=== PATIENT | male | born 1940 | race African-American/Black ===

== ENCOUNTER 2019-11-13 18:54 | Observation (INO) ==
[2019-11-13] MEDS ORDERED: ONDANSETRON 4 MG/2 ML VIAL IV STA (19:41)
[2019-11-13] MEDS ORDERED: PANTOPRAZOLE 40 MG TABLET PO STA (19:41)
[2019-11-13] MEDS ORDERED: SODIUM CHLORIDE 0.9% 500 ML IV STA (19:41)
[2019-11-13 20:02] LABS: Basophils % 0.2 % (0.0-0.8); Eosinophils # 0.1 10*3/uL (0.0-0.87); Eosinophils % 1.4 % (0.00-10.9); Hemoglobin 7.4 GM/DL (14.0-18.0); Immature Granulocytes % 1.5 %; Immature Granulocytes Absolute 0.14 #; Lymphocytes # 2.1 10*3/uL (1.4-4.0); Lymphocytes % 22.4 % (21.2-54.2); Mean Corpuscular HGB Conc 30.8 GM/DL (32-36); Mean Corpuscular Volume 96.4 FL (87-102); Mean Platelet Volume 12.2 FL (9.6-12.0); Monocytes % 9.6 % (1.7-12.7); NRBC # 0.02 10*3/uL; Neutrophils % 64.9 % (38.7-73.9); Platelet Count 169 T/CUMM (130-400); Red Blood Count 2.49 MC/CUMM (3.8-5.5); Red Cell Distribution Width 14.6 % (9.3-17.3); White Blood Count 9.4 T/CUMM (4-12)
[2019-11-13 20:11] LABS: Alanine Aminotransferase 58 U/L (16-61); Albumin 2.8 G/DL (3.4-5.0); Alkaline Phosphatase 78 U/L (45-117); Aspartate Amino Transferase 47 U/L (0-37); Bilirubin,Total < 0.39 MG/DL (0.2-1.0); Blood Urea Nitrogen 99 MG/DL (7-18); Calcium 8.5 MG/DL (8.5-10.1); Estimated Glom Filtration Rate 15 ML/MIN; Ferritin 503.6 ng/ml (26-388); Glucose 169 MG/DL (74-106); Osmolality,Calculated 313.4 MOS/KG (273-304); Total Protein 6.7 G/DL (6.4-8.3)
[2019-11-13 20:12] LABS: Troponin I 0.082 NG/ML (0.00-0.045)
[2019-11-13 20:22] LABS: INR 1.7; PT Patient Result 18.1 SECS (9.8-11.9); Partial Thromboplastin Time 32.3 SECS (23.9-33.8)
[2019-11-13] MEDS ORDERED: ONDANSETRON 4 MG/2 ML VIAL IV PRN (21:44)
[2019-11-13] MEDS ORDERED: ACETAMINOPHEN 325 MG TABLET PO PRN (21:44)
[2019-11-13] MEDS ORDERED: GLUCAGON 1 MG VIAL IM PRN (21:44)
[2019-11-13] MEDS ORDERED: DEXTROSE 50% 25 GM/50 ML VIAL IV PRN (21:44)
[2019-11-14 03:40] LABS: Hematocrit 20.1 VOL% (42.0-52.0)
[2019-11-14 03:43] LABS: Hemoglobin 6.1 GM/DL (14.0-18.0)
[2019-11-14] MEDS ORDERED: SODIUM CHLORIDE 0.9% 1,000 ML IV PRN ×3 (03:50→07:07)
[2019-11-14 03:51] LABS: PT Patient Result 20.9 SECS (9.8-11.9)
[2019-11-14 03:55] LABS: Partial Thromboplastin Time 34.4 SECS (23.9-33.8)
[2019-11-14 04:15] LABS: Alanine Aminotransferase 44 U/L (16-61); Albumin 2.4 G/DL (3.4-5.0); Alkaline Phosphatase 61 U/L (45-117); Aspartate Amino Transferase 33 U/L (0-37); Bilirubin,Total < 0.39 MG/DL (0.2-1.0); Blood Urea Nitrogen 102 MG/DL (7-18); Calcium 8.1 MG/DL (8.5-10.1); Estimated Glom Filtration Rate 15 ML/MIN; Glucose 155 MG/DL (74-106); Osmolality,Calculated 322.7 MOS/KG (273-304); Total Protein 5.6 G/DL (6.4-8.3)
[2019-11-14] MEDS ORDERED: FUROSEMIDE 20 MG/2 ML VIAL IV PRN ×2 (07:07→17:39)
[2019-11-14] MEDS ORDERED: PHYTONADIONE INJ 2.5 MG in SODIUM CHLORIDE 0.9% 25 ML IV ONE (07:30)
[2019-11-14] MEDS: INSULIN REGULAR 100 UNIT/ML SUBCUT SCH ×4 (08:48→22:02)
[2019-11-14] MEDS: POLYETHYLENE GLYCOL POWDER 17 GM PACK PO SCH ×3 (09:04→22:03)
[2019-11-14] MEDS: PANTOPRAZOLE 40 MG TABLET PO SCH (09:04)
[2019-11-14 14:03] LABS: Hematocrit 20.4 VOL% (42.0-52.0)
[2019-11-14 14:13] LABS: Hemoglobin 6.1 GM/DL (14.0-18.0)
[2019-11-14 22:22] LABS: Hemoglobin 8.1 GM/DL (14.0-18.0)
[2019-11-15 05:51] LABS: Basophils % 0.2 % (0.0-0.8); Eosinophils # 0.3 10*3/uL (0.0-0.87); Eosinophils % 1.9 % (0.00-10.9); Hematocrit 23.8 VOL% (42.0-52.0); Hemoglobin 7.8 GM/DL (14.0-18.0); Immature Granulocytes % 1.4 %; Immature Granulocytes Absolute 0.19 #; Lymphocytes # 2.3 10*3/uL (1.4-4.0); Lymphocytes % 17.1 % (21.2-54.2); Mean Corpuscular HGB Conc 32.8 GM/DL (32-36); Mean Corpuscular Volume 92.2 FL (87-102); Mean Platelet Volume 12.2 FL (9.6-12.0); Monocytes % 8.3 % (1.7-12.7); NRBC # 0.03 10*3/uL; Neutrophils % 71.1 % (38.7-73.9); Platelet Count 123 T/CUMM (130-400); Red Blood Count 2.58 MC/CUMM (3.8-5.5); Red Cell Distribution Width 15.9 % (9.3-17.3); White Blood Count 13.2 T/CUMM (4-12)
[2019-11-15 06:15] LABS: INR 1.4; PT Patient Result 14.6 SECS (9.8-11.9); Partial Thromboplastin Time 30.7 SECS (23.9-33.8)
[2019-11-15] MEDS: LEVOTHYROXINE 50 MCG TABLET PO SCH (06:35)
[2019-11-15] MEDS: METOPROLOL SUCCINATE XL 100 MG TABLET PO SCH (09:07)
[2019-11-15] MEDS: INSULIN REGULAR 100 UNIT/ML SUBCUT SCH ×4 (09:07→22:06)
[2019-11-15] MEDS: PANTOPRAZOLE 40 MG TABLET PO SCH ×2 (09:07→22:08)
[2019-11-15] MEDS: ATORVASTATIN 80 MG TABLET PO SCH (09:07)
[2019-11-15] MEDS: FOLIC ACID 1 MG TABLET PO SCH (09:07)
[2019-11-15] MEDS: amLODIPine 10 MG TABLET PO SCH (09:07)
[2019-11-15] MEDS: POTASSIUM CHLORIDE 10 MEQ TABLET PO SCH (09:07)
[2019-11-15] MEDS: ASCORBIC ACID 500 MG TABLET PO SCH (09:07)
[2019-11-15] MEDS: FERROUS GLUCONATE 324 MG TABLET PO SCH (09:07)
[2019-11-15] MEDS: POLYETHYLENE GLYCOL POWDER 17 GM PACK PO SCH ×3 (09:07→22:07)
[2019-11-15] MEDS: EZETIMIBE 10 MG TABLET PO SCH (09:07)
[2019-11-15] MEDS: CHOLECALCIFEROL 1,000 UNIT TABLET PO SCH (09:12)
[2019-11-15] MEDS ORDERED: SODIUM CHLORIDE 0.9% 1,000 ML IV PRN (09:32)
[2019-11-15] MEDS ORDERED: SODIUM CHLORIDE 0.9% IV ONE (09:35)
[2019-11-15] MEDS ORDERED: PHYTONADIONE IV ONE (09:35)
[2019-11-15 17:15] LABS: Hematocrit 29.4 VOL% (42.0-52.0); Hemoglobin 8.9 GM/DL (14.0-18.0)
[2019-11-16 05:51] LABS: Basophils % 0.3 % (0.0-0.8); Eosinophils # 0.2 10*3/uL (0.0-0.87); Eosinophils % 2.3 % (0.00-10.9); Hematocrit 24.3 VOL% (42.0-52.0); Hemoglobin 7.8 GM/DL (14.0-18.0); Immature Granulocytes % 1.4 %; Immature Granulocytes Absolute 0.13 #; Lymphocytes # 1.5 10*3/uL (1.4-4.0); Lymphocytes % 15.9 % (21.2-54.2); Mean Corpuscular HGB Conc 32.1 GM/DL (32-36); Mean Corpuscular Volume 93.1 FL (87-102); Mean Platelet Volume 12.5 FL (9.6-12.0); Monocytes % 8.8 % (1.7-12.7); NRBC # 0.03 10*3/uL; Neutrophils % 71.3 % (38.7-73.9); Platelet Count 120 T/CUMM (130-400); Red Blood Count 2.61 MC/CUMM (3.8-5.5); Red Cell Distribution Width 15.3 % (9.3-17.3); White Blood Count 9.6 T/CUMM (4-12)
[2019-11-16 06:06] LABS: INR 1.2; PT Patient Result 12.3 SECS (9.8-11.9); Partial Thromboplastin Time 29.1 SECS (23.9-33.8)
[2019-11-16 06:17] LABS: Calcium 7.9 MG/DL (8.5-10.1); Osmolality,Calculated 317.1 MOS/KG (273-304)
[2019-11-16] MEDS: LEVOTHYROXINE 50 MCG TABLET PO SCH (07:15)
[2019-11-16] MEDS: INSULIN REGULAR 100 UNIT/ML SUBCUT SCH ×2 (08:53→12:46)
[2019-11-16] MEDS: FOLIC ACID 1 MG TABLET PO SCH (08:54)
[2019-11-16] MEDS: ATORVASTATIN 80 MG TABLET PO SCH (08:54)
[2019-11-16] MEDS: EZETIMIBE 10 MG TABLET PO SCH (08:54)
[2019-11-16] MEDS: POTASSIUM CHLORIDE 10 MEQ TABLET PO SCH (08:54)
[2019-11-16] MEDS: POLYETHYLENE GLYCOL POWDER 17 GM PACK PO SCH (08:54)
[2019-11-16] MEDS: CHOLECALCIFEROL 1,000 UNIT TABLET PO SCH (08:54)
[2019-11-16] MEDS: PANTOPRAZOLE 40 MG TABLET PO SCH (08:55)
[2019-11-16] MEDS: ASCORBIC ACID 500 MG TABLET PO SCH (08:55)
[2019-11-16] MEDS: FERROUS GLUCONATE 324 MG TABLET PO SCH (08:55)
[2019-11-16] MEDS: amLODIPine 10 MG TABLET PO SCH (08:55)
[2019-11-16] MEDS: METOPROLOL SUCCINATE XL 100 MG TABLET PO SCH (08:55)
[2019-11-16 09:42] LABS: Hematocrit 26.3 VOL% (42.0-52.0); Hemoglobin 8.5 GM/DL (14.0-18.0)
[2019-11-16 12:37] VITALS: BP 174/92
== END 2019-11-16 13:01 | disposition home or self-care (01) ==
LOC: N.EDINP 18:54 → N.ED 18:54 → N.TELES 22:43
PROVIDERS: ADMIT Internal Medicine; ATTEND Internal Medicine